=== PATIENT | female | born 1960 | race Caucasian/White ===

== ENCOUNTER 2017-05-25 05:11 | Emergency (ER) | payer OTHER ==
[~2017-05-25] VITALS: Ht 160 cm; Wt 70.0 kg
[2017-05-25 05:18] VITALS: Ht 160 cm; Wt 70.0 kg
[2017-05-25] MEDS ORDERED: SULF1TAB31 PO (06:25)
[2017-05-25] MEDS ORDERED: CEPH-443 PO (06:26)
[2017-05-25] MEDS ORDERED: HYDR-906 PO (06:27)
[2017-05-25] MEDS ORDERED: IBUP-1542 PO (06:28)
--- NOTE | 2017-05-25 06:41 | ERD ---
ER Documentation Chief Complaint Date/Time DATE: 05/25/17 TIME: 06:29 Chief Complaint cyst to vaginal area clinic unaware of what it is per pt HPI This 57-year-old female presents the emergency department today complaining of a ball to her vaginal area that she states has been there for approximately 1 month. States she has recently been on antibiotics for bronchitis and that it gave her a rash. States she is unsure what the medication was. States she has been taking ibuprofen for pain. States that she went to her appointment a few days ago but was not tended to because they were too busy and was told to come back today. States that she put ice on the area. Denies any fevers or chills ROS All systems reviewed and are negative except as per history of present illness. Medications Home Meds Active Scripts Ibuprofen* (Motrin*) 600 Mg Tab, 600 MG PO Q6, #30 TAB Prov:MIGUE FERRIS-C 05/25/17 Hydrocodone/Acetaminophen ([place] 5-325 Tablet) 1 Each Tablet, 1 TAB PO Q6H Y for PAIN, #10 TAB Prov:MIGUE FERRISC 05/25/17 Cephalexin* (Keflex*) 500 Mg Capsule, 500 MG PO QID for 7 Days, CAP Prov:MIGUE FERRISC 05/25/17 Sulfamethoxazole/Trimethoprim* (Bactrim Ds* Tablet) 1 Each Tablet, 1 TAB PO BID for 7 Days, #14 TAB Prov:MIGUE FERRISC 05/25/17 PMhx/Soc Medical and Surgical Hx: pt denies Medical Hx, pt denies Surgical Hx Hx Alcohol Use: No Hx Substance Use: No Hx Tobacco Use: No Smoking Status: Never smoker Physical Exam Vitals Vital Signs Date Time Temp Pulse Resp B/P Pulse Ox O2 Delivery O2 Flow Rate FiO2 05/25/17 05:18 97.6 83 16 125/71 98 Physical Exam Const: No acute distress Head: Atraumatic Eyes: Normal Conjunctiva ENT: Normal External Ears, Nose and Mouth. Neck: Full range of motion..~ No meningismus. Resp: Clear to auscultation bilaterally Cardio: Regular rate and rhythm, no murmurs Abd: Soft, non tender, non distended. Normal bowel sounds Skin: 2 separate 2 cm areas of localized erythema that are firm and indurated on lateral aspect of external vagina along the gluteal fold. No purulent drainage Back: No midline or flank tenderness Ext: No cyanosis, or edema Neur: Awake and alert Psych: Normal Mood and Affect Procedures/MDM This is a 57-year-old female who presents to the emergency department today complaining of a ball on the outside of her vaginal area. Patient symptoms at this time is consistent with abscess. Area had to localized areas approximately 2 cm balls along the gluteal fold and vaginal area. Does not appear to be a Bartholin's cyst. There is no purulent drainage at this time and the area is indurated and there is no area of fluctuance and I do not feel the patient would benefit from an incision and drainage at this time. I explained this to the patient. I explained her that I would like to try antibiotics first. She was also instructed to apply warm compresses. There is localized cellulitis around the area however patient is afebrile and otherwise well-appearing. Low suspicion for sepsis or deep space tracking infection. Patient was instructed to follow back up with her primary care doctor today as planned. She may return in 48 hours for a wound check or sooner for worsening of symptoms. Patient was also given a prescription for short course of [place] and Motrin patient understood and agreed with plan Of note patient appeared to have one small area of localized rash on her right hip. This may be related to the previous antibiotic that she took however she was not able to tell me the name of it. Low suspicion for anaphylaxis. At this time the patient is stable for discharge and outpatient management. Patient should follow up with their PCP in the next 1-2 days. They may return to the emergency department sooner for any persistent or worsening of symptoms. Patient understood and agreed with the plan. Departure Diagnosis: Primary Impression: Abscess Condition: Fair Patient Instructions: Abscess, Antiobiotic Treatment Only Additional Instructions: Llame al doctor MANOJ y samuel chely CHAN PARA DENTRO DE 1-2 HERNANDEZ.Dgale a la secretaria que nosotros le instruimos hacer esta chan.Avise o llame si mcclain condicin se empeora antes de la chan. Regresa aqui si peor o no mejor. Go to your appointment at your primary care clinic Apply warm compresses or warm baths Take antibiotics as prescribed 48 hour recheck if no improvement or worsening of symptoms Take [place] for severe pain otherwise take Naprosyn or Tylenol or Motrin MIGUE FERRIS PA-C May 25, 2017 06:39
== END 2017-05-25 06:35 | disposition home or self-care (01) ==
LOC: FTE 05:11
DX: N76.4 Abscess of vulva (principal)
CPT/HCPCS: 99284

== ENCOUNTER 2017-05-27 19:32 | Emergency (ER) | payer OTHER ==
[~2017-05-27] VITALS: Ht 160 cm; Wt 72.0 kg
[~2017-05-27 19:32] MED LIST: CEPH-443 PO; HYDR-906 PO; IBUP-1542 PO; SULF1TAB31 PO
[2017-05-27 19:54] VITALS: Ht 160 cm; Wt 72.0 kg
[2017-05-27] MEDS ORDERED: HYDROCODONE/APAP (10/325) TAB PO ONE (20:30)
[2017-05-27] MEDS ORDERED: LIDOCAINE 2% (MDV) 20 ML INJ INJ ONE (20:30)
--- NOTE | 2017-05-27 21:04 | ERD ---
ER Documentation Chief Complaint Date/Time DATE: 05/27/17 TIME: 21:00 Chief Complaint pt with abscess on perineal area; pt c/o severe pain now HPI 57-year-old female presents here in emergency department for complaints abscess on the left lower perineal area for 3 days now, patient was seen here in emergency department, was given antibiotics, was given antibiotics, Keflex and Bactrim, and pain medications at home, feels that the lump that was previously hard, now is more softer and more painful. Patient described pain as throbbing pain, 8/10 scale, is worse upon touching the area. Patient denies any open wounds or discharge. Patient denies any fever or chills. ROS All systems reviewed and are negative except as per history of present illness. Medications Home Meds Active Scripts Ibuprofen* (Motrin*) 600 Mg Tab, 600 MG PO Q6, #30 TAB Prov:MIGUE FERRIS-C 05/25/17 Hydrocodone/Acetaminophen ([place] 5-325 Tablet) 1 Each Tablet, 1 TAB PO Q6H Y for PAIN, #10 TAB Prov:MIGUE FERRIS PA-C 05/25/17 Cephalexin* (Keflex*) 500 Mg Capsule, 500 MG PO QID for 7 Days, CAP Prov:MIGUE FERRIS PA-C 05/25/17 Sulfamethoxazole/Trimethoprim* (Bactrim Ds* Tablet) 1 Each Tablet, 1 TAB PO BID for 7 Days, #14 TAB Prov:MIGUE FERRIS-C 05/25/17 Allergies Allergies: Coded Allergies: No Known Allergy (Unverified , 05/25/17) PMhx/Soc Medical and Surgical Hx: pt denies Medical Hx, pt denies Surgical Hx Hx Alcohol Use: No Hx Substance Use: No Hx Tobacco Use: No Smoking Status: Never smoker FmHx Family History: No coronary disease, No diabetes, No other Physical Exam Vitals Vital Signs Date Time Temp Pulse Resp B/P Pulse Ox O2 Delivery O2 Flow Rate FiO2 05/27/17 19:54 97.6 75 20 126/90 98 Physical Exam GENERAL: The patient is well developed and appropriate for usual state of health, in no apparent distress. CHEST: Clear to auscultation bilaterally. There are no rales, wheezes or rhonchi. HEART: Regular rate and rhythm. No murmurs, clicks, rubs or gallops. No S3 or S4. ABDOMEN: Soft, nontender and nondistended. Good bowel sounds. No rebound or guarding. No gross peritonitis. No gross organomegaly or masses. No Giron sign or McBurney point tenderness. BACK: No midline or flank tenderness. EXTREMITIES: Equal pulses bilaterally. There is no peripheral clubbing, cyanosis or edema. No focal swelling or erythema. Full range of motion. Grossly neurovascularly intact. NEURO: Alert and oriented. Cranial nerves 2-12 intact. Motor strength in all 4 extremities with 5/5 strength. Sensation grossly intact. Normal speech and gait. SKIN: Noted 3 cm diameter erythematous indurated area on the left lower perineal area, fluctuant, tender on palpation. No Bartholin's cyst involvement. There is no apparent rash or petechia. The skin is warm and dry. HEMATOLOGIC AND LYMPHATIC: There is no evidence of excessive bruising or lymphedema. No gross cervical, axillary, or inguinal lymphadenopathy. Results 24 hrs Current Medications Medications (Trade) Dose Ordered Sig/Sonia Route PRN Reason Start Time Stop Time Status Last Admin Dose Admin Lidocaine (Xylocaine 2% (Mdv) 20 ml) 2 ml ONCE ONCE INJ 05/27/17 20:30 05/27/17 20:32 DC Acetaminophen/ Hydrocodone Bitart ([place] (10/325)) 1 tab ONCE ONCE PO 05/27/17 20:30 05/27/17 20:32 DC 05/27/17 20:52 Patient was given medication for pain here in emergency department, after treatment, patient verbalized feeling much better. Patient's pain is improved. Procedures/MDM Procedure Note: After obtaining informed consent, the wound was irrigated with 250 ml of normal saline and cleaned with diluted betadine. Using aseptic technique, 3 ml of 2% lidocaine was injected on the subcutaneous tissue of the abscess where the fluctuant area is at. After the anesthetic, a 2 cm incision was done in the middle of the fluctuant area of the abscess. Pustular discharge was drained from the abscess. The abscess wound was loosely packed with iodoform dressing. After the procedure, dry dressing was applied on the area. Patient tolerated procedure well. Medical decision making: Patient symptoms is likely consistent with a soft tissue abscess, this was drained without any difficulty, patient tolerated procedure well. no symptoms of sepsis at this time. No Bartholin's cyst involvement. Patient was already given antibiotics, was advised to continue Bactrim, Keflex, ibuprofen and [place] for pain, is advised to follow-up in 2 days for reevaluation and symptoms, changes of dressing, patient was advised to return sooner for any worsening symptoms. Disposition: Home. Stable. Departure Diagnosis: Primary Impression: Soft tissue abscess Condition: Stable Patient Instructions: Abscess, Incision And Drainage Additional Instructions: Patient was already given antibiotics, was advised to continue Bactrim, Keflex, ibuprofen and [place] for pain, is advised to follow-up in 2 days for reevaluation and symptoms, changes of dressing, patient was advised to return sooner for any worsening symptoms. JAYLEEN FABIAN NP May 27, 2017 21:04
== END 2017-05-27 21:22 | disposition home or self-care (01) ==
LOC: FTE 19:32
DX: L02.215 Cutaneous abscess of perineum (principal)
CPT/HCPCS: 56405; Z7610

== ENCOUNTER 2017-05-29 18:14 | Emergency (ER) | payer OTHER ==
[~2017-05-29] VITALS: Ht 162.6 cm; Wt 70.5 kg
[2017-05-29 18:19] VITALS: Ht 162.6 cm; Wt 70.5 kg
--- NOTE | 2017-05-30 00:21 | ERD ---
ER Documentation Chief Complaint Date/Time DATE: 05/30/17 TIME: 00:17 Chief Complaint wound check perineal area SP I& D HPI This is a 57-year-old female with a history of diabetes type 2 presenting to the emergency department to check an abscess that was incised and drained on May 25. Patient was given Keflex and Bactrim. Patient also came back here on May 27 for a wound check and had it irrigated. She states that the gauze has came out. Patient states that doing a lot better and she denies any fevers. ROS All systems reviewed and are negative except as per history of present illness. Medications Home Meds Active Scripts Ibuprofen* (Motrin*) 600 Mg Tab, 600 MG PO Q6, #30 TAB Prov:MIGUE FERRIS PA-C 05/25/17 Hydrocodone/Acetaminophen ([place] 5-325 Tablet) 1 Each Tablet, 1 TAB PO Q6H Y for PAIN, #10 TAB Prov:MIGUE FERRIS PA-C 05/25/17 Cephalexin* (Keflex*) 500 Mg Capsule, 500 MG PO QID for 7 Days, CAP Prov:MIGUE FERRIS PA-C 05/25/17 Sulfamethoxazole/Trimethoprim* (Bactrim Ds* Tablet) 1 Each Tablet, 1 TAB PO BID for 7 Days, #14 TAB Prov:MIGUE FERRIS PA-C 05/25/17 Allergies Allergies: Coded Allergies: No Known Allergy (Unverified , 05/25/17) PMhx/Soc Medical and Surgical Hx: pt denies Medical Hx, pt denies Surgical Hx Hx Alcohol Use: No Hx Substance Use: No Hx Tobacco Use: No Smoking Status: Never smoker Physical Exam Vitals Vital Signs Date Time Temp Pulse Resp B/P Pulse Ox O2 Delivery O2 Flow Rate FiO2 05/29/17 18:19 98.2 76 20 118/68 100 Physical Exam General: WD/WN, in no apparent distress, non-toxic appearing HENT: NC/AT Eyes: Conjunctiva normal Neck: Supple Pulm: Clear to auscultation, normal labored breathing; no wheezing/rales/ rhonchi heard CV: Good capillary refill GI: Non-distended, no guarding Back: No masses Ext: No clubbing, cyanosis, or edema Neuro: Moves on all fours Skin: Indurated region in the left groin Psych: Normal mood Procedures/MDM This is a 57-year-old female presenting to the emergency department for a wound check of an abscess that was incised and drained on May 25. Patient has also been evaluated here on May 27. It appears that it is getting better and healing. I discussed the patient to continue her antibiotics. Discussed the follow-up in 2 days at this facility for another wound check. Discussed return the ER for any worsening symptoms. Patient understands and agrees with this plan Departure Diagnosis: Primary Impression: Encounter for wound re-check Additional Impression: Abscess Condition: Stable Patient Instructions: Wound Care, Wound Packing, Abscess, Antiobiotic Treatment Only Referrals: CHARLENE BARRETT (PCP) Additional Instructions: WOUND CHECK:CONSULTE A HOROWITZ MDICO EN 2 hebert para bipin HOROWITZ HERIDA. Regrese a estas instalaciones si no se mejora maninder esperbamos o maninder le dijimos. [place] toda la medicina bob y maninder se le indic. GUILLE BARRAZA PA-C May 30, 2017 00:20
== END 2017-05-29 20:40 | disposition home or self-care (01) ==
LOC: FTE 18:14
DX: Z48.01 Encounter for change or removal of surgical wound dressing (principal)
CPT/HCPCS: 99281

== ENCOUNTER 2017-06-25 08:28 | Emergency (ER) | payer OTHER ==
[~2017-06-25] VITALS: Ht 152.4 cm; Wt 71.0 kg
[2017-06-25 08:29] VITALS: Ht 152.4 cm; Wt 71.0 kg
[2017-06-25] MEDS ORDERED: HYDR25SU23 PR (09:10)
[2017-06-25] MEDS ORDERED: POLY17PO6 PO (09:10)
--- NOTE | 2017-06-25 09:14 | ERD ---
ER Documentation Chief Complaint Date/Time DATE: 06/25/17 TIME: 09:12 Chief Complaint pt bib self with c/o bleeding starting yesterday, HX hemorroids HPI This 57-year-old female is here for rectal bleeding. The patient says she has been very constipated lately. She said that yesterday she was pushing out a stool and straining hard. She said she did pass a stool but as it was coming out was very painful at the anus. She says she wiped to have bright red blood. She has a history of perianal abscess in the past was not having any fever or rectal pain at this time. She says she is complaining of a tearing sensation during a bowel movement this resulted in sharp pain. She has no abdominal pain during stool or today ROS All systems reviewed and are negative except as per history of present illness. Medications Home Meds Active Scripts Polyethylene Glycol* (Miralax*) 17 Gm Powd.pack, 17 GM PO DAILY, #7 Prov:FLORA FISHER DO 06/25/17 Hydrocortisone Acetate (Anusol-Hc) 25 Mg Supp.rect, 1 SUPP ID BID Y for HEMORROID PAIN/ITCHING, #12 SUPP.RECT Prov:VERONICA FISHERSTCHUCKS Shelley. DO 06/25/17 Ibuprofen* (Motrin*) 600 Mg Tab, 600 MG PO Q6, #30 TAB Prov:MIGUE FERRIS-C 05/25/17 Hydrocodone/Acetaminophen ([place] 5-325 Tablet) 1 Each Tablet, 1 TAB PO Q6H Y for PAIN, #10 TAB Prov:MIGUE FERRISC 05/25/17 Cephalexin* (Keflex*) 500 Mg Capsule, 500 MG PO QID for 7 Days, CAP Prov:MIGUE FERRISC 05/25/17 Sulfamethoxazole/Trimethoprim* (Bactrim Ds* Tablet) 1 Each Tablet, 1 TAB PO BID for 7 Days, #14 TAB Prov:MIGUE FERRISC 05/25/17 Allergies Allergies: Coded Allergies: No Known Allergy (Unverified , 05/25/17) PMhx/Soc Hx Alcohol Use: No Hx Substance Use: No Hx Tobacco Use: No Smoking Status: Never smoker FmHx Family History: No coronary disease Physical Exam Vitals Vital Signs Date Time Temp Pulse Resp B/P Pulse Ox O2 Delivery O2 Flow Rate FiO2 06/25/17 08:29 98.3 74 16 119/74 98 Physical Exam Const: Well-developed, well-nourished Head: Atraumatic, normocephalic Eyes: Normal Conjunctiva, PERRLA, EOMI, normal sclera, no nystagmus ENT: Normal External Ears, Nose and Mouth, moist mucus membranes. Neck: Full range of motion. No meningismus, no lymphadenopathy. Resp: Clear to auscultation bilaterally, no wheezing, rhonchi, rales Cardio: Regular rate and rhythm, no murmurs, S1 S2 present Abd: Soft, non tender x 4, non distended. Normal bowel sounds, no guarding or rebound, no pulsitile abdominal masses or bruits Rectal there is a anal fissure tear at the 6 o'clock position with Skin: No petechiae or rashes, no ecchymosis , no maculopapular rash Back: No midline or flank tenderness Ext: No cyanosis, or edema, FROM x 4, normal inspection, neurovascularly intact x 4 Neur: Awake and alert, STR 5/5 x 4, sensation intact x 4, no focal findings, cerebellum intact Psych: Normal Mood and Affect Departure Diagnosis: Primary Impression: Anal fissure Condition: Stable Patient Instructions: Anal Fissure (Child) FLORA FISHER DO Jun 25, 2017 09:14
== END 2017-06-25 09:23 | disposition home or self-care (01) ==
LOC: FTE 08:28
DX: K60.2 Anal fissure, unspecified (principal)
CPT/HCPCS: 99284

== ENCOUNTER 2017-08-27 18:27 | Emergency (ER) | payer OTHER ==
[~2017-08-27] VITALS: Ht 165.1 cm; Wt 73.0 kg
[~2017-08-27 18:27] MED LIST changes: +HYDR25SU23 PR; +POLY17PO6 PO
[2017-08-27 18:47] VITALS: Ht 165.1 cm; Wt 73.0 kg
[2017-08-27] MEDS ORDERED: LIDOCAINE 1% (MDV) 20 ML INJ SC ONE (21:30)
--- NOTE | 2017-08-27 21:38 | ERD ---
ER Documentation Chief Complaint Date/Time DATE: 08/27/17 TIME: 21:32 Chief Complaint c/o rectal pain with bleeding x 2 days. States has a "ball." HPI 57-year-old female presents here to emergency department for complaints of redness and swelling in the left buttock area that started 2 days ago. Patient' s complaint of pain sharp pain, 6/10, worse upon touching the area. Patient denies any fever or chills. Patient did not take any medications for pain. ROS All systems reviewed and are negative except as per history of present illness. Medications Home Meds Active Scripts Polyethylene Glycol* (Miralax*) 17 Gm Powd.pack, 17 GM PO DAILY, #7 Prov:VERONICA FISHERSTMAGALIS AFay DO 06/25/17 Hydrocortisone Acetate (Anusol-Hc) 25 Mg Supp.rect, 1 SUPP [place] BID Y for HEMORROID PAIN/ITCHING, #12 SUPP.RECT Prov:VERONICA FISHERSTMAGALIS Holliday DO 06/25/17 Ibuprofen* (Motrin*) 600 Mg Tab, 600 MG PO Q6, #30 TAB Prov:MIGUE FERRIS PA-C 05/25/17 Hydrocodone/Acetaminophen ([place] 5-325 Tablet) 1 Each Tablet, 1 TAB PO Q6H Y for PAIN, #10 TAB Prov:MIGUE FERRIS PA-C 05/25/17 Cephalexin* (Keflex*) 500 Mg Capsule, 500 MG PO QID for 7 Days, CAP Prov:MIGUE FERRISC 05/25/17 Sulfamethoxazole/Trimethoprim* (Bactrim Ds* Tablet) 1 Each Tablet, 1 TAB PO BID for 7 Days, #14 TAB Prov:MIGUE FERRIS PA-C 05/25/17 Allergies Allergies: Coded Allergies: No Known Allergy (Unverified , 05/25/17) PMhx/Soc Medical and Surgical Hx: pt denies Medical Hx, pt denies Surgical Hx History of Surgery: No Anesthesia Reaction: No Hx Neurological Disorder: No Hx Respiratory Disorders: No Hx Cardiac Disorders: No Hx Psychiatric Problems: No Hx Miscellaneous Medical Probl: No Hx Alcohol Use: No Hx Substance Use: No Hx Tobacco Use: No Smoking Status: Never smoker FmHx Family History: No coronary disease, No diabetes, No other Physical Exam Vitals Vital Signs Date Time Temp Pulse Resp B/P Pulse Ox O2 Delivery O2 Flow Rate FiO2 08/27/17 18:47 98.1 81 18 124/77 98 Physical Exam GENERAL: The patient is well developed and appropriate for usual state of health, in no apparent distress. CHEST: Clear to auscultation bilaterally. There are no rales, wheezes or rhonchi. HEART: Regular rate and rhythm. No murmurs, clicks, rubs or gallops. No S3 or S4. ABDOMEN: Soft, nontender and nondistended. Good bowel sounds. No rebound or guarding. No gross peritonitis. No gross organomegaly or masses. No Giron sign or McBurney point tenderness. BACK: No midline or flank tenderness. EXTREMITIES: Equal pulses bilaterally. There is no peripheral clubbing, cyanosis or edema. No focal swelling or erythema. Full range of motion. Grossly neurovascularly intact. NEURO: Alert and oriented. Cranial nerves 2-12 intact. Motor strength in all 4 extremities with 5/5 strength. Sensation grossly intact. Normal speech and gait. SKIN: Noted some redness and swelling on the left buttock area, 2 cm diameter mild tenderness and fluctuance noted. There is no apparent rash or petechia. The skin is warm and dry. HEMATOLOGIC AND LYMPHATIC: There is no evidence of excessive bruising or lymphedema. No gross cervical, axillary, or inguinal lymphadenopathy. Results 24 hrs Current Medications Medications (Trade) Dose Ordered Sig/Sonia Route PRN Reason Start Time Stop Time Status Last Admin Dose Admin Lidocaine (Xylocaine 1% (Mdv) 20 ml) 2 ml ONCE ONCE SC 08/27/17 21:30 08/27/17 21:31 DC Procedures/MDM Procedure Note: After obtaining informed consent, the wound was irrigated with 250 ml of normal saline and cleaned with diluted betadine. Using aseptic technique, 3 ml of 1% lidocaine was injected on the subcutaneous tissue of the abscess where the fluctuant area is at. After the anesthetic, a 2 cm incision was done in the middle of the fluctuant area of the abscess. Pustular discharge was drained from the abscess. The abscess wound was loosely packed with iodoform dressing. After the procedure, dry dressing was applied on the area. Patient tolerated procedure well. Medical decision making: Patient symptoms was likely is consistent with a soft tissue abscess, incision and drainage was done. Patient tolerated procedure well. No symptoms of sepsis, no symptoms of necrosis. No symptoms of any fistula, no symptoms of any necrotizing fasciitis. Prescription was given for Bactrim, Keflex, is advised to follow-up with primary care doctor in 2-3 days for reevaluation of symptoms, wound check and dressing change. Patient was advised to return to emergency department for any worsening symptoms. Disposition: Home. Stable. Departure Diagnosis: Primary Impression: Abscess Condition: Stable Patient Instructions: Abscess, Incision And Drainage JAYLEEN FABIAN NP Aug 27, 2017 21:38
[2017-08-27] MEDS ORDERED: KETOROLAC 60 MG INJ IM STA (22:12)
[2017-08-27] MEDS ORDERED: IBUP-1542 PO (22:14)
[2017-08-27] MEDS ORDERED: HYDR-906 PO (22:14)
[2017-08-27] MEDS ORDERED: CEPH-443 PO (22:14)
[2017-08-27] MEDS ORDERED: SULF1TAB31 PO (22:14)
== END 2017-08-27 23:04 | disposition home or self-care (01) ==
LOC: FTE 18:27
DX: L02.31 Cutaneous abscess of buttock (principal)
CPT/HCPCS: 10061; J1885; Z7610; 96372

== ENCOUNTER 2017-08-31 08:18 | Emergency (ER) | payer OTHER ==
[~2017-08-31] VITALS: Ht 154.9 cm; Wt 64.0 kg
[2017-08-31 08:21] VITALS: Ht 154.9 cm; Wt 64.0 kg
[2017-08-31] MEDS ORDERED: MUPI22OI2 TOP (10:10)
--- NOTE | 2017-08-31 10:34 | ERD ---
ER Documentation Chief Complaint Chief Complaint pt bib self for recheck of abscess to groin/buttock region (JUAN LUIS SPRAGUE) HPI This is a 57-year-old female presents to the ER for a recheck of her Botox abscess. Abscess was drained 2 days ago. Patient states that the packing fell out on its own, and that she feels a lot better. She has not had any pain, redness, swelling, discharge from the area. She has not had any fevers or chills. (JUAN LUIS SPRAGUE) ROS 12 point review of systems was done, all negative except per HPI. (JUAN LUIS SPRAGUE) Medications Home Meds Active Scripts Mupirocin* (Bactroban*) 2% -22 Gram Oint...g., 1 APPLIC TOP BID for 7 Days, EA Prov:JUAN LUIS SPRAGUE 08/31/17 Hydrocodone/Acetaminophen ([place] 5-325 Tablet) 1 Each Tablet, 1 TAB PO Q6H Y for SEVERE PAIN LEVEL 7-10, #20 TAB Prov:JAYLEEN FABIAN NP 08/27/17 Ibuprofen* (Motrin*) 600 Mg Tab, 600 MG PO Q6H Y for PAIN AND OR ELEVATED TEMP, #30 TAB Prov:JAYLEEN FABIAN NP 08/27/17 Cephalexin* (Keflex*) 500 Mg Capsule, 500 MG PO QID for 10 Days, CAP Prov:JAYLEEN FABIAN NP 08/27/17 Sulfamethoxazole/Trimethoprim* (Bactrim Ds* Tablet) 1 Each Tablet, 1 TAB PO BID , #20 TAB Prov:JAYLEEN FABIAN NP 08/27/17 Polyethylene Glycol* (Miralax*) 17 Gm Powd.pack, 17 GM PO DAILY, #7 Prov:FLORA FISHER DO 06/25/17 Hydrocortisone Acetate (Anusol-Hc) 25 Mg Supp.rect, 1 SUPP [place] BID Y for HEMORROID PAIN/ITCHING, #12 SUPP.RECT Prov:VERONICA FISHERSTOLOS AFay DO 06/25/17 Ibuprofen* (Motrin*) 600 Mg Tab, 600 MG PO Q6, #30 TAB Prov:MIGUE FERRIS PA-C 05/25/17 Hydrocodone/Acetaminophen ([place] 5-325 Tablet) 1 Each Tablet, 1 TAB PO Q6H Y for PAIN, #10 TAB Prov:MIGUE ALDRIDGEFay ALEX 05/25/17 Cephalexin* (Keflex*) 500 Mg Capsule, 500 MG PO QID for 7 Days, CAP Prov:JOSYMIGUE VOGELC 05/25/17 Sulfamethoxazole/Trimethoprim* (Bactrim Ds* Tablet) 1 Each Tablet, 1 TAB PO BID for 7 Days, #14 TAB Prov:MIGUE FERRISFay VOGELC 05/25/17 Allergies Allergies: Coded Allergies: No Known Allergy (Unverified , 05/25/17) PMhx/Soc History of Surgery: No Anesthesia Reaction: No Hx Neurological Disorder: No Hx Respiratory Disorders: No Hx Cardiac Disorders: No Hx Psychiatric Problems: No Hx Miscellaneous Medical Probl: No Hx Alcohol Use: No Hx Substance Use: No Hx Tobacco Use: No Smoking Status: Never smoker (JUAN LUIS SPRAGUE) Physical Exam Vitals Vital Signs Date Time Temp Pulse Resp B/P Pulse Ox O2 Delivery O2 Flow Rate FiO2 08/31/17 08:21 97.3 73 16 123/64 98 (CAITIE MARTIN MD) Physical Exam GENERAL: The patient is well developed and appropriate for usual state of health , in no apparent distress. HEENT: Atraumatic. CHEST: Clear to auscultation bilaterally. There are no rales, wheezes or rhonchi. HEART: Regular rate and rhythm. No murmurs, clicks, rubs or gallops. RECTAL: incision and drainage site is closed and there is no surrounding erythema, swelling or warmth to the touch. it is not ttp and there is no discharge. NEURO: Alert and oriented. (JUAN LUIS SPRAGUE) Procedures/MDM Wound shows no evidence of infection, foreign body, neurologic injury, vascular injury, open joint or tendon laceration. Patient appropriate for outpatient follow up. (JUAN LUIS SPRAGUE) Departure Diagnosis: Primary Impression: Encounter for wound re-check Condition: Stable Patient Instructions: Wound Care Referrals: CHARLENE BARRETT (PCP) Additional Instructions: Llame al doctor MANOJ y samuel chely CHAN PARA DENTRO DE 1-2 HERNANDEZ.Dgale a la secretaria que nosotros le instruimos hacer esta chan.Avise o llame si mcclain condicin se empeora antes de la chan. Regresa aqui si peor o no mejor. JUAN LUIS SPRAGUE Aug 31, 2017 10:34 CAITIE MARTIN MD Aug 31, 2017 21:40
== END 2017-08-31 10:20 | disposition home or self-care (01) ==
LOC: FTE 08:18
DX: Z48.01 Encounter for change or removal of surgical wound dressing (principal)
CPT/HCPCS: 99283

== ENCOUNTER 2017-10-08 10:09 | Emergency (ER) | payer OTHER ==
[~2017-10-08] VITALS: Ht 162.6 cm; Wt 69.4 kg
[~2017-10-08 10:09] MED LIST changes: +MUPI22OI2 TOP
[2017-10-08 10:23] VITALS: Ht 162.6 cm; Wt 69.4 kg
--- NOTE | 2017-10-08 11:33 | ERD ---
ER Documentation Chief Complaint Chief Complaint Abscess HPI 57-year-old female presents with an abscess buttock region that she has had on and off for 4 months and drained spontaneously. The patient has been on Keflex and Bactrim, the last time was 2 weeks ago and she had mupirocin ointment that she was applying. And then it spontaneously drained purulent material yesterday for wound check. She has an appointment to see a surgeon on October 22. She has not had any fevers chills. ROS All systems reviewed and are negative except as per history of present illness. Medications Home Meds Active Scripts Mupirocin* (Bactroban*) 2% -22 Gram Oint...g., 1 APPLIC TOP BID for 7 Days, EA Prov:JUAN LUIS SPRAGUE 08/31/17 Hydrocodone/Acetaminophen ([place] 5-325 Tablet) 1 Each Tablet, 1 TAB PO Q6H Y for SEVERE PAIN LEVEL 7-10, #20 TAB Prov:JAYLEEN FABIAN NP 08/27/17 Ibuprofen* (Motrin*) 600 Mg Tab, 600 MG PO Q6H Y for PAIN AND OR ELEVATED TEMP, #30 TAB Prov:JAYLEEN FABIAN NP 08/27/17 Cephalexin* (Keflex*) 500 Mg Capsule, 500 MG PO QID for 10 Days, CAP Prov:JAYLEEN FABIAN NP 08/27/17 Sulfamethoxazole/Trimethoprim* (Bactrim Ds* Tablet) 1 Each Tablet, 1 TAB PO BID , #20 TAB Prov:JAYLEEN FABIAN NP 08/27/17 Polyethylene Glycol* (Miralax*) 17 Gm Powd.pack, 17 GM PO DAILY, #7 Prov:FLORA FISHER DO 06/25/17 Hydrocortisone Acetate (Anusol-Hc) 25 Mg Supp.rect, 1 SUPP GA BID Y for HEMORROID PAIN/ITCHING, #12 SUPP.RECT Prov:VERONICA FISHERSTCHUCKS AFay DO 06/25/17 Ibuprofen* (Motrin*) 600 Mg Tab, 600 MG PO Q6, #30 TAB Prov:MIGUE FERRIS PA-C 05/25/17 Hydrocodone/Acetaminophen ([place] 5-325 Tablet) 1 Each Tablet, 1 TAB PO Q6H Y for PAIN, #10 TAB Prov:MIGUE FERRISFay ALEX 05/25/17 Cephalexin* (Keflex*) 500 Mg Capsule, 500 MG PO QID for 7 Days, CAP Prov:MIGUE FERRIS ABI 05/25/17 Sulfamethoxazole/Trimethoprim* (Bactrim Ds* Tablet) 1 Each Tablet, 1 TAB PO BID for 7 Days, #14 TAB Prov:MIGUE FERRISFay ALEX 05/25/17 Allergies Allergies: Coded Allergies: No Known Allergy (Unverified , 05/25/17) PMhx/Soc History of Surgery: No Anesthesia Reaction: No Hx Neurological Disorder: No Hx Respiratory Disorders: No Hx Cardiac Disorders: No Hx Psychiatric Problems: No Hx Miscellaneous Medical Probl: No Hx Alcohol Use: No Hx Substance Use: No Hx Tobacco Use: No Physical Exam Vitals Vital Signs Date Time Temp Pulse Resp B/P Pulse Ox O2 Delivery O2 Flow Rate FiO2 10/08/17 10:23 98.0 70 18 132/80 100 Physical Exam General: Well-developed, well-nourished. The patient appears in no acute distress. HEENT: Head is normocephalic, atraumatic. No scleral icterus. Neck: Supple. Nontender. Lungs: Clear to auscultation. Normal air movement. Heart: Regular rate and rhythm. S1 and S2 are normal. No murmurs, gallops, or rubs. Abdomen: Soft, nontender, nondistended. Bowel sounds are normoactive. Extremities: No clubbing or cyanosis. Normal pulses. Moving extremities x 4. No weakness. Neurologic: Alert and oriented 3. No focal deficits. Skin: There is a healing abscess just lateral to the left labia, it is indurated but no evidence of fluctuance, there is an opening with scabbing. There is no erythema, warmth. There is no tracking appreciated. Procedures/MDM 57-year-old female comes in with an abscess that has spontaneously drained and the groin region, the patient was on antibiotics and has drained after doing sitz baths. There is induration noticed to be expected with. She will follow up with surgery, there is no evidence of fluctuance, the area does not warrant incision and drainage at this time or antibiotics. She was advised to continue warm compresses or sitz baths at home. Departure Diagnosis: Primary Impression: Encounter for wound re-check Additional Impression: Abscess Condition: Good Patient Instructions: Wound Care, Abscess Drainage Referrals: CHARLENE BARRETT (PCP) ZION PATEL PA-C Oct 08, 2017 11:33
== END 2017-10-08 17:45 | disposition home or self-care (01) ==
LOC: FTE 10:09
DX: Z48.01 Encounter for change or removal of surgical wound dressing (principal)
CPT/HCPCS: 99281

== ENCOUNTER 2017-10-21 06:25 | Day surgery (SDC) | payer OTHER ==
[~2017-10-21] VITALS: Ht 165.1 cm; Wt 69.9 kg
[2017-10-21] VITALS (11 sets, daily range): BP systolic 110–136; BP diastolic 65–78; PULSE 64–88; RESP 11–34; Ht 165.1 cm; Wt 69.9 kg
[2017-10-21] MEDS ORDERED: SOD CHLORIDE 0.9% 1,000 ML IV SCH (08:00)
[2017-10-21] MEDS ORDERED: CEFAZOLIN 2 GM/50 ML (PMX) 50 ML IVPB ONE (08:00)
[2017-10-21] MEDS ORDERED: MONT10TA24 PO (08:50)
[2017-10-21] MEDS ORDERED: ALBU18HF INHALATION (08:51)
[2017-10-21] MEDS ORDERED: BUPIVACAINE 0.25% (MPF) 30 ML INJ ONE (09:10)
[2017-10-21] MEDS ORDERED: MIDAZOLAM 1 MG/ML 2 ML INJ ONE (09:24)
[2017-10-21] MEDS ORDERED: HYDROCODONE/APAP (5/325) TAB PO ONE (10:00)
--- NOTE | 2017-10-21 10:01 | OPR ---
Date/Time of Note Date/Time of Note DATE: 10/21/17 TIME: 09:58 Operative Report Procedure Date: Oct 21, 2017 Preoperative Diagnosis left perianal fistula Postoperative Diagnosis same Operation/Procedure Performed 1. left perianal fistulectomy and fistulotomy 2. rigid proctoscopy 3. therapeutic injection of subcutaneous local anesthesia Surgeon see signature line Bobcat Driver/Labor none Anesthesia Type: general Estimated Blood Loss: 0 - 10 ml's Transfusion none Specimen left perianal fistula Grafts/Implants none Complications none Pt Condition Post Procedure: stable Indications This is a 57-year-old female with a left perianal fistula. She requests surgical excision. Risks alternatives benefits and percent were discussed the patient. Patient expresses understanding consents to the operation. Procedure Description Patient is taken to the OR and prepped and draped in usual sterile fashion. Surgical timeout was performed. IV antibiotics given. Rigid proctoscopy is performed there is no evidence of any masses or lesions. Attention was then paid to the left anterior perianal fistula. The disc portion of the tissues along with the fistula is excised using cautery. Hence the fistulectomy was performed. The fistulotomy performed by placing a lacrimal duct probe along the fistula tract and cauterized the fistula tract. There is good hemostasis. Therapeutic subcutaneous local anesthesia was injected at the incision site. Dressings were applied. Johanne RITTER Oct 21, 2017 10:01
[2017-10-21] MEDS ORDERED: PROPOFOL 20 ML ONE (10:05)
[2017-10-21] MEDS ORDERED: GLYCOPYRROLATE 0.4 MG INJ ONE (10:05)
[2017-10-21] MEDS ORDERED: ROCURONIUM 50 MG INJ ONE (10:05)
[2017-10-21] MEDS ORDERED: ONDANSETRON 4 MG INJ ONE (10:05)
[2017-10-21] MEDS ORDERED: CEFAZOLIN 1 GM INJ ONE (10:05)
[2017-10-21] MEDS ORDERED: LIDOCAINE 2% (SDV) 5 ML INJ ONE (10:05)
[2017-10-21] MEDS ORDERED: NEOSTIGMINE 3 MG/3 ML SYRINGE ONE (10:05)
[2017-10-21] MEDS ORDERED: DIPHENHYDRAMINE 50 MG INJ IV PRN (10:30)
[2017-10-21] MEDS ORDERED: FENTAnyl 50 MCG/ML VIAL IV PRN (10:30)
[2017-10-21] MEDS ORDERED: MEPERIDINE 25 MG INJ IV PRN (10:30)
[2017-10-21] MEDS ORDERED: ONDANSETRON 4 MG INJ IV PRN (10:30)
[2017-10-21] MEDS ORDERED: HYDROmorphONE (0.2 MG/ML) 10ML SYG IV PRN ×2 (10:30)
[2017-10-21] MEDS ORDERED: METOCLOPRAMIDE 10 MG INJ IV PRN (10:30)
== END 2017-10-21 11:40 | disposition home or self-care (01) ==
LOC: SDS 06:25
PROVIDERS: ATTEND Surgery
DX: K60.3 Anal fistula (principal); J45.909 Unspecified asthma, uncomplicated; E66.9 Obesity, unspecified; Z68.25 Body mass index [BMI] 25.0-25.9, adult
CPT/HCPCS: 46270; 88304; J0690; J2250; J2405; J2710; J3010; Z7512; Z7610

== ENCOUNTER 2018-04-09 11:01 | Day surgery (SDC) | END 2018-04-09 15:07 | disposition home or self-care (01) ==

== ENCOUNTER 2018-06-26 10:55 | Day surgery (SDC) | END 2018-06-26 16:00 | disposition home or self-care (01) ==

== ENCOUNTER 2018-08-29 07:57 | Day surgery (SDC) | END 2018-08-29 13:50 | disposition home or self-care (01) ==

== ENCOUNTER 2019-01-26 08:02 | Emergency (ER) | payer OTHER ==
[~2019-01-26] VITALS: Ht 167.6 cm; Wt 65.0 kg
[2019-01-26 08:06] VITALS: Ht 167.6 cm; Wt 65.0 kg
[2019-01-26] MEDS ORDERED: KETOROLAC 60 MG INJ IM STA (08:31)
[2019-01-26] MEDS ORDERED: ACET500C5 PO (09:40)
--- NOTE | 2019-01-26 09:50 | ERD ---
ER Documentation Chief Complaint Chief Complaint Complains of left knee pain x 3 days HPI 58-year-old female patient with no significant past medical history presents the ED complaining of left knee pain that started to worsen about 3 days ago, started about 3 weeks ago. Denies any trauma or injuries. Denies any fever, chills, loss sensation, loss of range of motion, nausea, vomiting, increased redness or swelling. Denies any head or neck injuries. ROS All systems reviewed and are negative except as per history of present illness. Medications Home Meds Active Scripts Acetaminophen* (Tylophen*) 500 Mg Capsule, 1 CAP PO Q6H PRN for PAIN AND OR ELEVATED TEMP, #20 CAP Prov:ADAM HARRIS PA-C 01/26/19 Allergies Allergies: Coded Allergies: No Known Allergy (Unverified , 10/21/17) PMhx/Soc History of Surgery: Yes (PROCTOSIGMOIDOSCOPY) Anesthesia Reaction: No Hx Neurological Disorder: No Hx Respiratory Disorders: No Hx Cardiac Disorders: No Hx Psychiatric Problems: No Hx Miscellaneous Medical Probl: No Hx Alcohol Use: No Hx Substance Use: No Hx Tobacco Use: No Smoking Status: Never smoker FmHx Family History: No diabetes, No coronary disease Physical Exam Vitals Vital Signs Date Temp Pulse Resp B/P (MAP) Pulse Ox O2 O2 Flow FiO2 Time Delivery Rate 01/26/19 97.6 73 20 141/84 100 08:06 (103) Physical Exam Const: [id number], well-nourished. In no acute distress. Head: Atraumatic, normocephalic Eyes: Normal Conjunctiva without injection ENT: Normal external ear, nose and mouth. Neck: Full range of motion. No meningismus. Resp: Clear to auscultation bilaterally. No wheezing, rhonchi, rales, or crackles. No accessory muscle use. No retractions. Cardio: Regular rate and rhythm, no murmurs Skin: No petechiae or rashes Back: No midline tenderness. No CVA tenderness. Ext: No cyanosis, or edema. Cap refill less than 2 seconds. Distal pulses intact bilaterally. Tenderness to palpation of the left infrapatellar region as well as medial aspect of patient's left knee. No fluctuance or induration. No warmth to touch. No erythema. Full range of motion with flexion, extension. Neur: Awake and alert. Normal gait and coordination. Muscle strength 5/5. Sensation intact bilaterally. Psych: Normal Mood and Affect Results 24 hrs Current Medications Medications Dose Sig/Sonia Start Time Status Last (Trade) Ordered Route PRN Stop Time Admin Dose Reason Admin Ketorolac 60 mg ONCE STAT 01/26/19 DC 01/26/19 Tromethamine IM 08:31 08:34 (Toradol) 01/26/19 08:32 Procedures/MDM 58-year-old female patient with no significant past medical history presents to ED complaining of left knee pain that started 3 weeks ago, worsened 3 days ago. Patient is afebrile and nontoxic-appearing. IMPRESSION: 1. A 1.7 cm density projects through the subcutaneous fat medial to the proximal right tibial metaphysis. This could represent a soft tissue nodule or possibly external artifact. 2. Otherwise, unremarkable right knee series. Patient has her own knee brace which is helping with patient's pain. Splint Assessment: Neurovascularly intact pre and post splint placement with good fit. Patient's extremity symptoms have stabilized while they have been evaluated in the department and are appropriate for outpatient follow up. No evidence of fractures, dislocations, compartment syndrome, neurologic injury, vascular injury, open joint, open fracture, tendon laceration, septic arthritis, osteomyelitis, DVT, foreign body, or other emergent conditions. Diagnosis: Knee Pain Discharge medications: Tylenol Follow up with primary care physician in 1-2 days for a referral to see an orthopedic physician for follow up care of soft tissue nodule or artifact noted. Instructed patient to return to the ED sooner for any worsening symptoms. Patient's questions were answered. Patient is hemodynamically stable. Patient understood and agreed with discharge plan. Patient discharged stable. Disclaimer: Inadvertent spelling and grammatical errors are likely due to EHR/dictation software use and do not reflect on the overall quality of patient care. Also, please note that the electronic time recorded on this note does not necessarily reflect the actual time of the patient encounter. Departure Diagnosis: Primary Impression: Knee pain Chronicity: acute Laterality: left Qualified Codes: M25.562 - Pain in left knee Condition: Stable Patient Instructions: Knee Pain, Uncertain Cause Referrals: COMMUNITY CLINICS YOU HAVE RECEIVED A MEDICAL SCREENING EXAM AND THE RESULTS INDICATE THAT YOU DO NOT HAVE A CONDITION THAT REQUIRES URGENT TREATMENT IN THE EMERGENCY DEPARTMENT. FURTHER EVALUATION AND TREATMENT OF YOUR CONDITION CAN WAIT UNTIL YOU ARE SEEN IN YOUR DOCTORS OFFICE WITHIN THE NEXT 1-2 DAYS. IT IS YOUR RESPONSIBILITY TO MAKE AN APPOINTMENT FOR FOLOW-UP CARE. IF YOU HAVE A PRIMARY DOCTOR --you should call your primary doctor and schedule an appointment IF YOU DO NOT HAVE A PRIMARY DOCTOR YOU CAN CALL OUR PHYSICIAN REFERRAL HOTLINE AT IF YOU CAN NOT AFFORD TO SEE A PHYSICIAN YOU CAN CHOSE FROM THE FOLLOWING [facility] [address] [facility] [address] [facility] [address] [facility] [address] [facility] [address] [facility]. [facility] [address] [facility]. [facility] YOU HAVE RECEIVED A MEDICAL SCREENING EXAM AND THE RESULTS INDICATE THAT YOU DO NOT HAVE A CONDITION THAT REQUIRES URGENT TREATMENT IN THE EMERGENCY DEPARTMENT. FURTHER EVALUATION AND TREATMENT OF YOUR CONDITION CAN WAIT UNTIL YOU ARE SEEN IN YOUR DOCTORS OFFICE WITHIN THE NEXT 1-2 DAYS. IT IS YOUR RESPONSIBILITY TO MAKE AN APPOINTMENT FOR FOLOW-UP CARE. IF YOU HAVE A PRIMARY DOCTOR --you should call your primary doctor and schedule and appointment IF YOU DO NOT HAVE A PRIMARY DOCTOR YOU CAN CALL OUR PHYSICIAN REFERRAL HOTLINE AT . IF YOU CAN NOT AFFORD TO SEE A PHYSICIAN YOU CAN CHOSE FROM THE FOLLOWING REPLACED BY [facility] INSTITUTIONS: [facility] [address] [place] [address] [facility] [address] [place] [address] [facility] [address] [place] [address] [facility] URGENT CARE/SPECIALTIES Additional Instructions: Llame al doctor MAANA y samuel chely CHAN PARA DENTRO DE 2-3 HERNANDEZ.Dgale a la secretaria que nosotros le instruimos hacer esta chan.Avise o llame si mcclain condicin se empeora antes de la chan. Regresa aqui si peor o no mejor. ADAM HARRIS PA-C Jan 26, 2019 09:50
== END 2019-01-26 11:10 | disposition home or self-care (01) ==
LOC: FTE 08:02
DX: M25.562 Pain in left knee (principal)
CPT/HCPCS: 73562; 96372; J1885; Z7502

== ENCOUNTER 2019-07-25 06:26 | Emergency (ER) | payer OTHER ==
[~2019-07-25] VITALS: Ht 162.6 cm; Wt 73.7 kg
[~2019-07-25 06:26] MED LIST changes: +ACET500C5 PO; +ALBU8.5H8 INH; +BENZ-6 PO; -CEPH-443 PO; +GUAI1TBM12 PO; -HYDR-906 PO; -HYDR25SU23 PR; -IBUP-1542 PO; +MED4DP PO; -MUPI22OI2 TOP; -POLY17PO6 PO; +PRED20TA PO; -SULF1TAB31 PO
[2019-07-25 06:32] VITALS: BP 132/68; PULSE 109; RESP 18; Ht 162.6 cm; Wt 73.7 kg
[2019-07-25] MEDS ORDERED: ALBUTEROL 0.083% (NEB) 2.5 MG/3 ML AMP HHN STA (06:41)
[2019-07-25] MEDS ORDERED: IPRATROPIUM (NEB) 0.5 MG/2.5 ML AMP HHN ONE (07:00)
[2019-07-25] MEDS ORDERED: DEXAMETHASONE 10 MG/ML 1 ML INJ IM ONE (07:00)
== END 2019-07-25 09:03 | disposition home or self-care (01) ==
LOC: FTE 06:26
DX: J45.901 Unspecified asthma with (acute) exacerbation (principal)
CPT/HCPCS: 71045; 94644; 96372; J1100; Z7502; Z7610